=== PATIENT | female | born 1980 | race Caucasian/White ===

== ENCOUNTER 2019-01-12 02:14 | Emergency (ER) | payer BC ==
[~2019-01-12] VITALS: Ht 160 cm; Wt 66.0 kg
[2019-01-12] MEDS ORDERED: ONDANSETRON HCL 4MG/2ML INJ IV ONE (03:15)
[2019-01-12] MEDS ORDERED: SODIUM CHLORIDE 0.9% 1,000 ML IV ONE (03:15)
[2019-01-12] MEDS ORDERED: LORAZEPAM 0.5MG TABLET PO ONE ×2 (04:45→10:00)
[2019-01-12 09:20] VITALS: BP 126/81
== END 2019-01-12 12:48 | disposition home or self-care (01) ==
LOC: ER 02:14
DX: F10.229 Alcohol dependence with intoxication, unspecified (principal); F41.9 Anxiety disorder, unspecified; F17.210 Nicotine dependence, cigarettes, uncomplicated; Y90.9 Presence of alcohol in blood, level not specified
CPT/HCPCS: 93005; 96361; 96374; 99283; J2405; J7030